=== PATIENT | male | born 1950 | race Asian ===

== ENCOUNTER 2021-11-21 17:49 | Emergency (ER) | payer SELFPAY ==
[~2021-11-21] VITALS: Ht 170.2 cm; Wt 63.5 kg
[2021-11-21 17:58] VITALS: BP 159/79
[2021-11-21 19:22] LABS: Eosinophils # (auto) 0.1 10 ^3/uL (0-0.8); Hemoglobin 8.2 g/dL (13.5-17.5); Lymphocytes # (auto) 0.3 10 ^3/uL (0.4-5.4)
[2021-11-21 19:24] LABS: Basophils # (auto) 0 10 ^3/uL (0-0.2); Basophils % (auto) 0.6 % (0.0-2.0); Eosinophils % (auto) 1.5 % (0.0-7.0); Hematocrit 23.5 % (41.0-53.0); Lymphocytes % (auto) 4.8 % (10.0-50.0); Mean Corpuscular Hemoglobin 33.4 pg (28.0-32.0); Mean Corpuscular Hgb Conc. 35.1 g/dL (32.0-36.0); Monocytes # (auto) 0.8 10 ^3/uL (0-1.3); Monocytes % (auto) 11.2 % (0.0-12.0); Neutrophils # (auto) 5.9 10 ^3/uL (1.6-8.6); Neutrophils % (auto) 81.9 % (37.0-80.0); Nucleated Red Blood Cells % 0.3 %; Red Blood Cells 2.47 10^6/uL (4.5-5.90); Red Cell Distribution Width 18.8 % (11.8-14.3); White Blood Cell 7.1 10^3/uL (4.4-10.8)
[2021-11-21 19:43] LABS: Albumin 3.2 g/dL (3.4-5.0); BUN/Creatinine Ratio 16.6; Calcium 7.5 mg/dL (8.5-10.1); Potassium 3.9 mmol/L (3.5-5.1)
[2021-11-21 19:54] LABS: Bilirubin, Total 1.2 mg/dL (0.2-1.0); Total Protein 6.6 g/dL (6.4-8.2)
== END 2021-11-21 19:23 | disposition left against medical advice (07) ==
LOC: ER 17:49 → EDBD 17:49 → ER 19:23
DX: R00.0 Tachycardia, unspecified (principal)
CPT/HCPCS: 36415; 80053; 84484; 85025; 93005

== ENCOUNTER 2022-01-18 15:56 | Emergency (ER) | payer OTHER ==
[~2022-01-18] VITALS: Ht 172.7 cm; Wt 59.0 kg
[2022-01-18] MEDS ORDERED: SODIUM CHLORIDE 0.9% 500 ML IVB ONE (16:30)
[2022-01-18 17:48] LABS: Urine Bacteria NONE SEEN /hpf (None Seen); Urine Blood TRACE /uL (Negative); Urine Hyaline Cast FEW /lpf (0 - 2); Urine Specific Gravity 1.013 (1.001-1.035); Urine WBC 77 /hpf (0 - 3)
[2022-01-18 19:05] LABS: Hemoglobin 8.1 g/dL (13.5-17.5); Mean Corpuscular Hemoglobin 34.1 pg (28.0-32.0); Mean Corpuscular Volume 97.4 fL (80.0-100.0); Red Blood Cells 2.36 10^6/uL (4.5-5.90); White Blood Cell 7.5 10^3/uL (4.4-10.8)
[2022-01-18 19:07] LABS: Red Cell Distribution Width 20.1 % (11.8-14.3)
[2022-01-18 19:08] LABS: Basophils % (manual) 0 (0.0-2.0); Blast Cells 0; Myelocytes % 0; Promyelocytes % 0; Reactive Lymphocytes 0
[2022-01-18 19:18] LABS: INR 1.43 (0.9-1.15); Partial Thromboplastin Time 34.2 sec (23.6-33.0)
[2022-01-18 19:22] LABS: Albumin 3.1 g/dL (3.4-5.0); BUN/Creatinine Ratio 13.8; Calcium 8.1 mg/dL (8.5-10.1); Magnesium 1.9 mg/dL (1.6-2.6); Potassium 3.5 mmol/L (3.5-5.1)
[2022-01-18 19:25] LABS: Bilirubin, Total 0.9 mg/dL (0.2-1.0); Total Protein 7.2 g/dL (6.4-8.2)
[2022-01-18] MEDS ORDERED: cefTRIAXone 1GM/50ML D5W 50 ML IV ONE (20:30)
[2022-01-18] MEDS ORDERED: IOHEXOL 350 MG/ML 100ML IJ ONE (20:31)
[2022-01-18 21:13] VITALS: BP 119/56
[2022-01-18 21:43] LABS: Band Neutrophils % (manual) 8; Eosinophils % (manual) 5 (0-7); Lymphocytes % (manual) 10 (10.0-50.0); Metamyelocytes % 2; Monocytes % (manual) 24 (0-12)
== END 2022-01-18 21:08 | disposition left against medical advice (07) ==
LOC: ER 15:56 → EDBD 15:56 → ER 21:08
DX: N39.0 Urinary tract infection, site not specified (principal); R50.9 Fever, unspecified; R79.1 Abnormal coagulation profile; Z20.822 Contact with and (suspected) exposure to COVID-19
CPT/HCPCS: 36415; 71045; 71275; 80053; 81001; 83605; 83735; 84484; 85007; 85027; 85379; 85610; 85730; 87040; 87077; 87186; 87426; 93005; 96361; 96365; 99285; J0696; J7040; Q9967